=== PATIENT | male | born 1945 | race Hispanic/Latino ===

== ENCOUNTER 2017-09-29 18:21 | Observation (INO) | payer MEDICARE, BC ==
[2017-09-29 19:00] LABS: #Basophils 0.2 thou/uL (0.0-0.2); #Eosinphils 0.5 thou/uL (0.0-0.7); #Lymphocytes 2.9 thou/uL (1.20-3.40); #Monocytes 0.7 thou/uL (0.11-0.59); #Neutrophils 7.3 thou/uL (1.40-6.50); %Basophils 1.3 % (0.0-1.0); %Lymphocytes 25.4 % (21.0-51.0); %Monocytes 5.8 % (0.0-10.0); %Neutrophils 63.5 % (42.0-75.0); Hemoglobin 15.8 g/dL (14.0-18.0); Mean Corpuscular HGB CONC 33.1 g/dL (32.0-36.0); Mean Corpuscular Hemoglobin 29.8 pg (27.0-31.0); Mean Corpuscular Volume 90.1 fl (80.0-94.0); Mean Platelet Volume 8.1 fL (7.4-10.4); Platelet Count 280 thou/uL (130-400); RBC Distribution Width 12.8 % (11.5-14.5); Red Blood Cell (RBC) Count 5.31 mill/uL (4.70-6.10); White Blood Cell (WBC) Count 11.5 thou/uL (4.8-10.8)
[2017-09-29 19:34] LABS: ALT (SGPT) 20 U/L (8-55); AST (SGOT) 12 U/L (5-34); Albumin 4.3 g/dL (3.4-4.8); Alkaline Phosphatase 62 U/L (40-150); Anion Gap 17 mmol/L (10-20); BUN (Urea Nitrogen) 19 mg/dL (8.4-25.7); Bilirubin, Total 0.8 mg/dL (0.2-1.2); Calc. Creatinine Clearance 0 mL/min (70-130); Calcium 9.2 mg/dL (7.8-10.44); Carbon Dioxide 24 mmol/L (23-31); Chloride 102 mmol/L (98-107); Estimated GFR-MDRD 67; Globulin 3.2 g/dL (2.4-3.5); Glucose 230 mg/dL (83-110); Potassium 4.6 mmol/L (3.5-5.1); Protein, Total 7.5 g/dL (5.8-8.1); Sodium 138 mmol/L (136-145)
[2017-09-29 19:41] LABS: CKMB 1.2 ng/mL (0-6.6); Troponin I Less than 0.010 ng/mL (< 0.028)
--- NOTE | 2017-09-29 19:51 | RAD ---
PORTABLE CHEST: 09/29/17 COMPARISON: 03/16/12 study. HISTORY: Chest pain. Heart size is within normal limits considering lordotic technique. Postop sternotomy changes are seen . The lungs are clear of infiltrates. There are no signs of failure. No rib fractures identified. IMPRESSION: No active intrathoracic disease. POS: [facility]
--- NOTE | 2017-09-29 19:53 | CT ---
CT OF BRAIN PERFORMED WITHOUT CONTRAST ENHANCEMENT: 09/29/17 HISTORY: Dizziness, syncope. The ventricular and cisternal system shows fairly age appropriate change. there are no signs of intra cerebral hemorrhage or extra-axial fluid collections. The mastoid air cells are clear. There is minim al right maxillary sinus mucosal disease. IMPRESSION: No acute intracranial abnormality. POS: [facility]
[2017-09-29] MEDS ORDERED: Meclizine HCl 25 MG TAB ONE (21:53)
[2017-09-29] MEDS ORDERED: Sodium Chloride 0.9% 1,000 ML IV SCH (23:00)
[2017-09-29] MEDS ORDERED: Ondansetron ODT 4 MG TAB SL PRN (23:00)
[2017-09-29] MEDS ORDERED: Acetaminophen 325 MG TAB PO PRN ×2 (23:00→23:09)
[2017-09-29] MEDS ORDERED: Ondansetron HCl/PF 4 MG/2 ML Vial IVP PRN ×2 (23:00→23:09)
[2017-09-29] MEDS ORDERED: Mag-Al 1200 mg/1200 mg/30 ML UDCUP PO PRN (23:09)
[2017-09-29] MEDS ORDERED: Dextrose 5% in Water 1,000 ML IV PRN (23:09)
[2017-09-29] MEDS ORDERED: hydrALAZINE 20 MG/ML VIAL SLOW IVP PRN (23:09)
[2017-09-29] MEDS ORDERED: Dextrose 50% Abboject 50 ML SYRINGE SLOW IVP PRN (23:09)
[2017-09-29] MEDS ORDERED: Bisacodyl 5 MG TAB PO PRN (23:09)
[2017-09-29] MEDS ORDERED: Calcium Carbonate 500 MG ChewTAB PO PRN (23:09)
[2017-09-29] MEDS ORDERED: Senokot 8.6 MG TAB PO PRN (23:09)
[2017-09-29] MEDS ORDERED: HumaLOG 300 UNITS/3 ML VIAL SC PRN (23:09)
[2017-09-29] MEDS ORDERED: Meclizine HCl 12.5 MG TAB PO PRN (23:25)
[2017-09-29] MEDS ORDERED: diphenhydrAMINE 25 MG CAP PO PRN (23:39)
[2017-09-29] MEDS ORDERED: Allopurinol 300 MG TAB PO SCH (23:45)
[2017-09-29] MEDS: Sodium Chloride 0.9% 1,000 ML IV SCH (23:47)
[2017-09-30 00:24] VITALS: BMI 30.7
[2017-09-30 06:07] LABS: #Basophils 0.1 thou/uL (0.0-0.2); #Eosinphils 0.5 thou/uL (0.0-0.7); #Lymphocytes 3.5 thou/uL (1.20-3.40); #Monocytes 0.8 thou/uL (0.11-0.59); #Neutrophils 5.5 thou/uL (1.40-6.50); %Basophils 1.1 % (0.0-1.0); %Eosinophils 4.6 % (0.0-10.0); %Lymphocytes 33.8 % (21.0-51.0); %Monocytes 7.2 % (0.0-10.0); %Neutrophils 53.3 % (42.0-75.0); Hemoglobin 14.7 g/dL (14.0-18.0); Mean Corpuscular HGB CONC 33.1 g/dL (32.0-36.0); Mean Corpuscular Volume 90.5 fl (80.0-94.0); Mean Platelet Volume 8.9 fL (7.4-10.4); Platelet Count 257 thou/uL (130-400); RBC Distribution Width 12.8 % (11.5-14.5); Red Blood Cell (RBC) Count 4.89 mill/uL (4.70-6.10); White Blood Cell (WBC) Count 10.4 thou/uL (4.8-10.8)
[2017-09-30] MEDS: Refresh (Polyvinyl Alcohol 1.4%/Povidone 0.6%) Opth Drops EA EYE PRN ×2 (06:09→10:16)
[2017-09-30 06:24] LABS: Anion Gap 16 mmol/L (10-20); BUN (Urea Nitrogen) 16 mg/dL (8.4-25.7); Calc. Creatinine Clearance 97 mL/min (70-130); Calcium 9.3 mg/dL (7.8-10.44); Carbon Dioxide 27 mmol/L (23-31); Chloride 101 mmol/L (98-107); Estimated GFR-MDRD 75; Glucose 281 mg/dL (83-110); Sodium 140 mmol/L (136-145)
[2017-09-30 06:29] LABS: Cardiac Risk 6.3 (Less than 4.5)
--- NOTE | 2017-09-30 07:41 | HP ---
DATE OF ADMISSION: 09/29/2017 PRIMARY CARE PHYSICIAN: Philip Hale M.D. CHIEF COMPLAINT: Dizziness. HISTORY OF PRESENT ILLNESS: Mr. Higgins is a 72-year-old male with past medical history of diabetes, hypertension, dyslipidemia, and coronary artery disease who presented to the emergency room with the above-mentioned complaint. History is mainly obtained by the patient himself and supplemented by his family members present in the room. Electronic medical records have been reviewed and the case has been discussed with the admitting ER physician. According to Mr. Higgins, he has been feeling fine up until 3 or 4 days ago. He suddenly started to f eel very dizzy. He describes the dizziness as whiplash that lasted few seconds and then goes away by itself. All of his symptoms are associated with position change, especially when he gets up from th e lying position and from sitting to standing position. He is not dizzy when lying in bed with eyes closed or open. He has no dizziness with changing positions while lying in bed. He reports that whe n he gets up and is dizzy, the dizziness goes away within few seconds and he is able to ambulate free ly. He is not dizzy when he is ambulated. He denies any unsteadiness on his feet. He denies any im balance. He denied any sensation that he is going to fall. However, his family reports that they pfeiffer d to support him into the emergency room today because he was not able to walk very well because of t he dizziness. The patient himself denied any other recent illnesses. He did have some cataract surg oly done, but he states that he contacted his eye doctor who told him that his symptoms are not becau se of his cataract surgery. The patient has not been having any flu-like symptoms. He denies any ch est pain, palpitation, shortness of breath or headache. He denies any muscle weakness or paraesthesi as. He has no chest pain. Upon presentation to the emergency room, he was hemodynamically stable with a blood pressure 127/79 a nd pulse of 69. His initial workup included a normal 12-lead EKG. His chest x-ray was unremarkable. A CT scan of the brain did not show any acute abnormality. He was given some meclizine and is now being admitted for further evaluation. PAST MEDICAL HISTORY: 1. History of coronary artery disease, status post CABG x4. 2. Diabetes mellitus, type 2. 3. Dyslipidemia. 4. GERD. PAST SURGICAL HISTORY: 1. CABG x4 in 1993. 2. Cholecystectomy. 3. Laminectomy. 4. Cataract surgery. ALLERGIES: No known medication allergies. FAMILY HISTORY: Positive for coronary artery disease. SOCIAL HISTORY: He quit smoking in 1990 after 45-[id number]-hxty history of smoking. No history of drug o r alcohol abuse. He lives with his family and is independent with his ADLs and IADLs. CURRENT MEDICATIONS: The patient does not remember his medication except that he takes metformin, al lopurinol and unknown blood pressure medications. Rest of the medications as per the ER record inclu de Humalog 10 units t.i.d., simvastatin 20 mg daily, metformin 2000 mg at bedtime, allopurinol 300 mg daily, Prilosec 20 mg daily, aspirin 81 mg daily. Please note that these further would need to be c larified. REVIEW OF SYSTEMS: The following complete review of systems was negative, unless otherwise mentioned in the HPI or below: Constitutional: Weight loss or gain, ability to conduct usual activities. Skin: Rash, itching. Eyes: Double vision, pain. ENT/Mouth: Nose bleeding, neck stiffness, pain, tenderness. Cardiovascular: Palpitations, dyspnea on exertion, orthopnea. Respiratory: Shortness of breath, wheezing, cough, hemoptysis, fever or night sweats. Gastrointestinal: Poor appetite, abdominal pain, heartburn, nausea, vomiting, constipation, or diarr hea. Genitourinary: Urgency, frequency, dysuria, nocturia. Musculoskeletal: Pain, swelling. Neurologic/Psychiatric: Anxiety, depression. Allergy/Immunologic: Skin rash, bleeding tendency. LABORATORY DATA: His CBC is unremarkable except for mild elevation of WBCs at 11.5 without any left shift. Serum chemistry showed blood sugar at 230, otherwise unremarkable. Cardiac enzymes are pete l and chest x-ray by my review has no evidence to suggest pulmonary infiltrate, effusion or edema. A CT scan of the brain by my review has no evidence of any acute hemorrhage, infarction. He has minim al right maxillary sinus mucosal disease. A 12-lead EKG by my review shows normal sinus rhythm witho ut any specific ST or T-wave changes, sinus rhythm at 72 beats per minute. PHYSICAL EXAMINATION: VITAL SIGNS: Upon presentation include blood pressure 127/79, pulse of 69, respirations 18, saturati ng 92% on room air, temperature 97.9 GENERAL: No acute distress, awake, alert, oriented x3. HEENT: Mucous membrane is moist and pink. No oropharyngeal exudate or erythema. Head is normocepha lic, atraumatic. Pupils are equal, reactive to light and accommodation. Extraocular movements are i ntact. NECK: Supple without any lymphadenopathy, JVD or bruit. CHEST: Clear to auscultation without any wheezing, rales or rhonchi. CARDIOVASCULAR: Rate and rhythm is regular without any murmur, rubs or gallops. ABDOMEN: Soft, nontender, nondistended with positive bowel sounds. EXTREMITIES: Free of any cyanosis, clubbing, or edema. NEUROLOGIC: Cranial nerves II-XII are grossly intact. Irgdxx-ia-xwia testing is intact. Gait is no t checked, but according to the ER physician, it was normal. Muscle strength is 5/5 in all 4 extremi ties. Sensation is intact. SKIN: Free of any rashes or bruises. Feels warm and dry to touch. PSYCHIATRIC: Normal affect. IMPRESSION AND PLAN: 1. Dizziness, the patient is having vertigo, likely positional vertigo. Given his extensive risk fa ctors, he will be admitted to rule out posterior cerebellar circulation stroke. We will do an MRI, e chocardiogram, as well as carotid Doppler ultrasound. We will resuscitate him with gentle IV fluids and check orthostatics again in the morning. As per the emergency room report, his orthostatics were checked and were within normal limits. He did not have any change. We will continue the meclizine at this time as needed basis. We will obtain MRI of the brain along with an echocardiogram as well. He will be on telemetry to rule out any arrhythmias. If he indeed dose have a cerebrovascular accid ent, we will consult Neurology. We will, however, consult stroke team at this time. We will also ch will a lipid profile. 2. Diabetes mellitus, type 2. We will restart his home medications once confirmed. For now, we avis l continue with moderate insulin sliding scale with frequent Accu-Cheks. 3. History of coronary artery disease. Restart his home medications including aspirin. We will als o restart his statin and adjust the dose based on his lipid panels. 4. History of gout. Restart his allopurinol at home dosages. He is asymptomatic at this time. 5. History of hypertension. The patient does not remember his home medications. We will put him on p.r.n. antihypertensives and we will try to confirm his home medications and restart them as needed. 6. Code status: FULL CODE. Discussed with the patient. 7. Add deep venous thrombosis and gastrointestinal prophylaxis. DISPOSITION: Mr. Higgins is being admitted for symptoms of dizziness and rule out stroke. Further ma nagement will depend upon his clinical course. He is currently observation status.
[2017-09-30] MEDS: HumaLOG 300 UNITS/3 ML VIAL SC PRN ×2 (07:42→13:16)
[2017-09-30] MEDS ORDERED: Enoxaparin Sodium 40 MG/0.4 ML SYRINGE SC SCH (09:00)
[2017-09-30] MEDS ORDERED: Aspirin 325 mg Enteric Coated Tablet PO SCH (09:00)
--- NOTE | 2017-09-30 09:33 | ULT ---
BILATERAL CAROTID DUPLEX ULTRASOUND: DATE: 09/30/17 HISTORY: TIA. TECHNIQUE: Henning scale ultrasound with color flow and spectral Doppler imaging of the extracranial carotid artery systems performed. FINDINGS: No significant intimal wall thickening or plaque formation is noted on either side. The peak systolic velocity in the right ICA measures 88 cm/second with an end-diastolic velocity of 3 2 cm/second and a systolic ratio of 0.94. The peak systolic velocity in the left ICA measures 86 cm/second with an end-diastolic velocity of 30 cm/second and a systolic ratio of 0.91. Flow in both vertebral arteries remains antegrade. IMPRESSION: No evidence of hemodynamically significant stenosis. POS: [facility]
--- NOTE | 2017-09-30 11:15 | MRI ---
BRAIN MRI WITHOUT CONTRAST: Date: 09-30-17 Comparison: None. History: Increasing dizziness, TIA. Technique: Multiplanar, multisequence MR imaging of the brain is obtained without contrast. FINDINGS: The diffusion weighted imaging demonstrates no evidence for acute infarction. The axial gradient echo imaging demonstrates no evidence for intracranial hemorrhage. There is mild mucosal thickening involving the posterior ethmoid air cells bilaterally as well as the right maxillary sinus. Arterial flow voids at the axial level of the skull base demonstrate a hypoplastic right distal verte bral artery. The regional bone marrow signal intensity appears within normal limits. There is degenerative change at the atlantoaxial interspace. IMPRESSION: No acute findings. POS: [facility]
[2017-09-30 11:19] VITALS: TEMP 98.8
[2017-09-30 12:45] VITALS: BP 137/75
[2017-09-30] MEDS: Sodium Chloride 0.9% 1,000 ML IV SCH (17:01)
--- NOTE | 2017-10-01 08:13 | DIS ---
PRIMARY CARE PHYSICIAN: Philip Hale M.D. DISCHARGE DIAGNOSES: Benign paroxysmal positional vertigo. BRIEF SUMMARY OF HOSPITALIZATION: This is a 72-year-old with a history of coronary artery disease, status post CABG x4, type 2 diabetes, hyperlipidemia, hypertension, who had a chief complaint of dizziness on presentation. Please see the original history and physical for full details surrounding admission. During this hospitalization, the patient was evaluated with MRI, carotid Doppler , echocardiogram, all of which were essentially unrevealing for an etiology of the dizziness. The patient had no demonstrable cardiac or neurological structural issues contributing to his admission presentation. At the time of discharge, the patient also states that he has had decreased episodes of dizziness. Further discussion of his recent medication history revealed a immediately recent URI type illness. At the time of discharge, I suspect that the patient is experiencing a post viral vertiginous syndrome consistent with BPPV and is referred to outpatient physical therapy, dizziness clinic, this was discussed with the patient and his family at bedside. The patient was trialed on meclizine while on an inpatient basis, and this provided very little symptomatic relief. The patient was given a prescription of meclizine on an outpatient basis so that he can retrial the medication. He has also been instructed to continue otherwise with his home medications. Chronic medical issues were stable during hospitalization. CONSULTATIONS: None. MEDICATION RECONCILIATION: Please see the EMR for full details and the patient to continue on home regimen with the addition of meclizine. DISCHARGE FOLLOWUP INSTRUCTIONS: The patient has been asked to follow up closely with his outpatient primary care provider next week. The patient has also been given referral for physical therapy, dizziness clinic. Thank you for asking me care for your patient. Questions or concerns, please contact me at [facility]. YURIY
--- NOTE | 2017-10-02 16:45 | EKG ---
Test Reason : Blood Pressure : / mmHG Vent. Rate : 072 BPM Atrial Rate : 072 BPM P-R Int : 164 ms QRS Dur : 084 ms QT Int : 404 ms P-R-T Axes : 027 -28 020 degrees QTc Int : 442 ms Normal sinus rhythm Inferior infarct , age undetermined Abnormal ECG Confirmed by BALDO PINK ([id number]), news video editor TERESA ESTRADA ([id number]) on 10/02/2017 4:45:47 PM Referred By: Confirmed By:BALDO PINK
== END 2017-09-30 16:45 | disposition home or self-care (01) ==
LOC: ERS 18:21 → 2SE 21:53
PROVIDERS: ADMIT Internal Medicine; ATTEND Internal Medicine
DX: H81.10 Benign paroxysmal vertigo, unspecified ear (principal); I25.10 Atherosclerotic heart disease of native coronary artery without angina pectoris; E11.9 Type 2 diabetes mellitus without complications; E78.5 Hyperlipidemia, unspecified; I10 Essential (primary) hypertension; K21.9 Gastro-esophageal reflux disease without esophagitis; Z79.84 Long term (current) use of oral hypoglycemic drugs; Z79.899 Other long term (current) drug therapy; Z90.49 Acquired absence of other specified parts of digestive tract; Z98.49 Cataract extraction status, unspecified eye; Z95.1 Presence of aortocoronary bypass graft; Z98.890 Other specified postprocedural states
CPT/HCPCS: 70450; 70551; 71045; 80048; 80053; 80061; 82553; 82962 ×2; 83735; 84484; 85025 ×2; 93005; 93306; 93880; 94760; 96372; 97116; 97139 ×4; 99285; G0378; G8978; G8979; G8980; G8987; G8988; G8989; 36415; 36416; G8996-GN-CH; G8997-GN-CH; G8998-GN-CH; J1650

== ENCOUNTER 2018-01-23 02:57 | Emergency (ER) | payer MEDICARE, BC ==
[2018-01-23 04:03] LABS: #Basophils 0.1 thou/uL (0.0-0.2); #Eosinphils 0.3 thou/uL (0.0-0.7); #Lymphocytes 3.4 thou/uL (1.20-3.40); #Monocytes 0.9 thou/uL (0.11-0.59); #Neutrophils 8.1 thou/uL (1.40-6.50); %Basophils 0.7 % (0.0-1.0); %Eosinophils 2.7 % (0.0-10.0); %Lymphocytes 26.4 % (21.0-51.0); %Monocytes 6.8 % (0.0-10.0); %Neutrophils 63.4 % (42.0-75.0); Hemoglobin 17.2 g/dL (14.0-18.0); Mean Corpuscular Hemoglobin 30.5 pg (27.0-31.0); Mean Corpuscular Volume 89.9 fl (80.0-94.0); Platelet Count 293 thou/uL (130-400); RBC Distribution Width 12.2 % (11.5-14.5); Red Blood Cell (RBC) Count 5.64 mill/uL (4.70-6.10); White Blood Cell (WBC) Count 12.7 thou/uL (4.8-10.8)
[2018-01-23 04:16] LABS: ALT (SGPT) 19 U/L (8-55); AST (SGOT) 15 U/L (5-34); Albumin 4.3 g/dL (3.4-4.8); Alkaline Phosphatase 63 U/L (40-150); Anion Gap 14 mmol/L (10-20); BUN (Urea Nitrogen) 17 mg/dL (8.4-25.7); Bilirubin, Total 0.6 mg/dL (0.2-1.2); Calc. Creatinine Clearance 0 mL/min (70-130); Calcium 9.6 mg/dL (7.8-10.44); Carbon Dioxide 22 mmol/L (23-31); Chloride 105 mmol/L (98-107); Estimated GFR-MDRD 70; Globulin 3.2 g/dL (2.4-3.5); Glucose 193 mg/dL (83-110); Lipase 33 U/L (8-78); Potassium 4.1 mmol/L (3.5-5.1); Protein, Total 7.5 g/dL (5.8-8.1); Sodium 137 mmol/L (136-145)
[2018-01-23 05:57] LABS: Bilirubin Small (Negative); Blood, Urine Negative (Negative); Clarity CLEAR (Clear); Glucose, Urine (Dipstick) 250 mg/dL (Negative); Leukocyte Negative (Negative); Nitrite Negative (Negative); Protein, Urine (Dipstick) Trace mg/dL (Neg-Trace); Specific Gravity, Urine 1.035 (1.002-1.036); pH, Urine 5.5 (5.0-9.0)
--- NOTE | 2018-01-23 16:05 | CT ---
PRELIMINARY REPORT/[facility]/EMERGENTY AFTER-HOURS PROCEDURE CT Abdomen and Pelvis With Intravenous Contrast CLINICAL HISTORY: 72 years old, male; Pain; Abdominal pain; Generalized; Patient HX: M72 presents to ed C/O diarrhea th at began at 2200 yesterday and abd pain that began 2 hours after. Pt denies hematemesis. Pt localizes abd pain to epigastric region with radiation to suprapubic region. Pt denies HX of similar SX. TECHNIQUE: Axial computed tomography images of the abdomen and pelvis with intravenous contrast. Coronal reforma tted images were created and reviewed. COMPARISON: No relevant prior studies available. FINDINGS: Lung bases: No acute findings. ABDOMEN: Liver: Liver attenuation may be related to steatosis and/or phase of enhancement. Gallbladder and bile ducts: Cholecystectomy. Pancreas: Normal. Spleen: Hepatic and splenic calcified granulomas. Adrenals: Normal. Kidneys and ureters: Normal. Stomach and bowel: Mild small bowel mucosal prominence suggested along with mucosal thickening and mi ld mesenteric edema proximally. Fluid content in the colon. There may be mild mucosal thickening enrike g the inferior cecum. No obstruction. PELVIS: Appendix: No findings to suggest acute appendicitis. Bladder: Unremarkable. Reproductive: Unremarkable. ABDOMEN and PELVIS: Intraperitoneal space: Small amount of ascites. No free air. Bones/joints: Unremarkable. No acute fracture. Soft tissues: Unremarkable. Vasculature: Unremarkable. Lymph nodes: Unremarkable. No enlarged lymph nodes. IMPRESSION: Findings may represent nonspecific enteritis. Thank you for allowing us to participate in the care of your patient. Dictated and Authenticated by: Margarito Lipscomb MD 01/23/2018 6:42 AM Central Time ([place] & [place]) ABDOMEN CT WITH CONTRAST: PELVIS CT WITH CONTRAST: HISTORY: Diarrhea. Pain. TECHNIQUE: An abdomen and pelvis CT is performed with IV contrast. Coronal reformatted images are submitted for interpretation. FINDINGS: This report is in agreement with the preliminary report by [facility]. There are small bowel loops that have mucosal prominence. Enteritis is suspected. There is also joy dence of mild stranding of the central abdominal mesentery, possibly due to mesenteritis. POS: [facility]
== END 2018-01-23 07:22 | disposition home or self-care (01) ==
LOC: ERS 02:57
DX: R10.13 Epigastric pain (principal); R19.7 Diarrhea, unspecified; I25.2 Old myocardial infarction; E11.9 Type 2 diabetes mellitus without complications; E78.5 Hyperlipidemia, unspecified; I10 Essential (primary) hypertension; Z87.891 Personal history of nicotine dependence; Z79.4 Long term (current) use of insulin; Z79.82 Long term (current) use of aspirin; Z79.899 Other long term (current) drug therapy
CPT/HCPCS: 36415; 74177; 80053; 81003; 83605; 83690; 85025; 96360

== ENCOUNTER 2018-10-25 19:30 | Outpatient (CLI) | payer MEDICARE, BC | END 2018-10-25 19:31 | disposition home or self-care (01) | LOC: SLEEPLAB 19:30 | PROVIDERS: ATTEND Internal Medicine Critical Care Medicine | DX: G47.33 Obstructive sleep apnea (adult) (pediatric) (principal) | CPT/HCPCS: 95811 ==

== ENCOUNTER 2020-03-27 19:30 | Outpatient (CLI) | payer MEDICARE, BC | END 2020-03-27 19:31 | disposition home or self-care (01) | LOC: SLEEPLAB 19:30 | PROVIDERS: ATTEND Internal Medicine Critical Care Medicine | DX: G47.33 Obstructive sleep apnea (adult) (pediatric) (principal); G47.10 Hypersomnia, unspecified; R06.83 Snoring; E66.9 Obesity, unspecified; Z68.32 Body mass index [BMI] 32.0-32.9, adult | CPT/HCPCS: 95811 ==

== ENCOUNTER 2023-02-18 08:27 | Outpatient (CLI) | payer MEDICARE, BC | END 2023-02-18 08:28 | disposition home or self-care (01) | LOC: RAD 08:27 | PROVIDERS: ATTEND Internal Medicine Critical Care Medicine | DX: R06.00 Dyspnea, unspecified (principal) | CPT/HCPCS: 71046 ==

== ENCOUNTER 2024-07-18 09:54 | Outpatient (CLI) | payer MEDICARE, BC | END 2024-07-18 09:55 | disposition home or self-care (01) | LOC: SCSMRI 09:54 | PROVIDERS: ATTEND Family Medicine | DX: M25.512 Pain in left shoulder (principal); M54.2 Cervicalgia; M19.012 Primary osteoarthritis, left shoulder; M47.22 Other spondylosis with radiculopathy, cervical region | CPT/HCPCS: 72141 ==

== ENCOUNTER 2025-07-05 01:47 | Emergency (ER) | payer OTHER ==
[2025-07-05 03:01] LABS: #Basophils 0.17 10x3/uL (0.0-0.2); #Eosinophils 0.66 10x3/uL (0.0-0.7); #Monocytes 0.96 10x3/uL (0.11-0.59); #Neutrophils 8.70 10x3/uL (1.40-6.50); %Basophils 1.3 % (0.0-1.0); %Eosinophils 5.0 % (0.0-10.0); %Lymphocytes 20.0 % (21.0-51.0); %Monocytes 7.2 % (0.0-10.0); %Neutrophils 65.7 % (42.0-75.0); Hematocrit 51.3 % (42.0-52.0); Hemoglobin 16.5 g/dL (14.0-18.0); Mean Corpuscular Hemoglobin 29.0 pg (27.0-31.0); Mean Corpuscular Volume 90.3 fL (78.0-98.0); Platelet Count 244 10x3/uL (130-400); Red Blood Cell (RBC) Count 5.68 mill/uL (4.70-6.10); White Blood Cell (WBC) Count 13.25 10x3/uL (4.8-10.8)
[2025-07-05 03:17] LABS: ALT (SGPT) 22 U/L (Less than 45); AST (SGOT) 25 U/L (11-34); Albumin 4.2 g/dL (3.1-4.5); Alkaline Phosphatase 96 U/L (40-110); Anion Gap 16 mmol/L (10-20); BUN (Urea Nitrogen) 21 mg/dL (8.4-25.7); Bilirubin, Total 0.6 mg/dL (0.3-1.2); Calc. Creatinine Clearance 0 mL/min (70-130); Calcium 9.5 mg/dL (7.8-10.44); Carbon Dioxide 23 mmol/L (23-31); Chloride 106 mmol/L (98-107); Globulin 3.5 g/dL (2.4-3.5); Glucose 201 mg/dL (83-110); Lipase 16 U/L (8-78); Potassium 4.0 mmol/L (3.5-5.1); Sodium 141 mmol/L (136-145)
[2025-07-05 03:42] LABS: Bacteria/HPF None Seen HPF (None Seen); CAUTI Indications for Culture Pelvic or flank pain; Glucose, Urine (Dipstick) Greater than 1000 mg/dL (Negative); Leukocyte Negative Leu/uL (Negative); Protein, Urine (Dipstick) Negative (Neg-Trace); Specific Gravity, Urine 1.032 (1.002-1.036)
[2025-07-05 03:44] LABS: Urine Culture Reflex No No
[2025-07-05] MEDS ORDERED: Ibuprofen 800 MG TAB ONE (03:55)
[2025-07-05] MEDS ORDERED: Acetaminophen 500 MG TAB ONE (03:55)
== END 2025-07-05 05:36 | disposition home or self-care (01) ==
LOC: ERS 01:47
DX: K59.00 Constipation, unspecified (principal); I25.2 Old myocardial infarction; E11.9 Type 2 diabetes mellitus without complications; I11.0 Hypertensive heart disease with heart failure; I50.9 Heart failure, unspecified; E78.5 Hyperlipidemia, unspecified; Z79.84 Long term (current) use of oral hypoglycemic drugs; Z79.4 Long term (current) use of insulin; Z79.82 Long term (current) use of aspirin; Z79.899 Other long term (current) drug therapy; F17.220 Nicotine dependence, chewing tobacco, uncomplicated
CPT/HCPCS: 51798; 74177; 80053; 81001; 83690; 85025